=== PATIENT | male | born 1970 | race Caucasian/White ===

== ENCOUNTER 2020-05-06 13:21 | Emergency (ER) | payer OTHER ==
[~2020-05-06] VITALS: Ht 177.8 cm; Wt 93.6 kg
[2020-05-06 14:26] LABS: BASO % 0.7 % (0.0-1.0); EOS # 0.1 10^3/uL (0.0-0.5); EOS % 0.9 % (0.0-3.0); HEMOGLOBIN 16.8 g/dl (13.5-17.5); LYMPH # 1.7 10^3/uL (1.5-5.0); LYMPH % 28.4 % (24.0-44.0); MEAN CORPUSCULAR HEMOGLOBIN 30.4 pg (27.0-33.0); MEAN CORPUSCULAR HGB CONC 34.3 g/dl (32.0-36.5); MEAN CORPUSCULAR VOLUME 88.6 fl (80.0-96.0); MONO # 0.9 10^3/uL (0.0-0.8); MONO % 15.8 % (0.0-5.0); NEUTROPHILS # 3.1 10^3/uL (1.5-8.5); PLATELET COUNT, AUTOMATED 213 10^3/uL (150-450); RED BLOOD COUNT 5.53 10^6/uL (4.30-6.10); WHITE BLOOD COUNT 5.8 10^3/uL (4.0-10.0)
[2020-05-06 14:37] LABS: INR 0.89; PARTIAL THROMBOPLASTIN TIME 25.8 SECONDS (25.0-38.4); PROTHROMBIN TIME 12.2 SECONDS (11.8-14.0)
[2020-05-06 14:40] LABS: D-DIMER QUANT 367.25 ng/ml (<500)
[2020-05-06 14:52] LABS: BLOOD UREA NITROGEN 14 MG/DL (7-18); CALCIUM LEVEL 9.5 MG/DL (8.5-10.1); CARBON DIOXIDE LEVEL 30 MEQ/L (21-32); CHLORIDE LEVEL 106 MEQ/L (98-107); CK-MB VALUE MASS < 1.0 NG/ML (<3.6); CPK CREATINE PHOSPHOKINASE 67 U/L (39-308); CREATININE FOR GFR 1.06 MG/DL (0.70-1.30); GLOMERULAR FILTRATION RATE > 60.0 (>56); GLUCOSE, FASTING 101 MG/DL (70-100); MB/CK RELATIVE INDEX 1.49 (< OR =4); NT-PRO BNP 17 PG/ML (<125); POTASSIUM SERUM 4.2 MEQ/L (3.5-5.1); SODIUM LEVEL 139 MEQ/L (136-145); TROPONIN I < 0.02 NG/ML (< 0.10)
--- NOTE | 2020-05-06 16:07 | REPVR ---
PROCEDURE INFORMATION: Exam: XR Chest, 1 View Exam date and time: 05/06/2020 3:32 PM Age: 50 years old Clinical indication: Shortness of breath; Additional info: Cough, SOB, chest pain TECHNIQUE: Imaging protocol: XR of the chest Views: 1 view. COMPARISON: No relevant prior studies available. FINDINGS: Lungs: Unremarkable. No consolidation. Pleural space: Unremarkable. No pleural effusion. No pneumothorax. Heart/Mediastinum: Unremarkable. No cardiomegaly. Bones/joints: Unremarkable. IMPRESSION: No acute findings. Electronically signed by: Wilbur Lizarraga On 05/06/2020 16:07:23 PM
[2020-05-06 16:24] VITALS: BP 123/84
--- NOTE | 2020-05-08 08:39 | ECGEPIP ---
[facility] - ED Test Date: 2020-05-06 Pat Name: GINA CANTRELL Department: Room: - Gender: Male Director Of Purchasing: DUDLEY : 1970 Requested By: SAIMA HOUSER Order Number: [id number] Reading MD: Anna Marie Gilbert Measurements Intervals [place] Rate: 76 P: 41 ID: [id number] QRS: 9 QRSD: 99 T: 27 QT: 370 QTc: 416 Interpretive Statements SINUS RHYTHM NORMAL ECG SEE SCANNED DOWNTIME REPORT
== END 2020-05-06 16:26 | disposition home or self-care (01) ==
LOC: M ED 13:21
DX: J06.9 Acute upper respiratory infection, unspecified (principal)